=== PATIENT | male | born 1975 | race Caucasian/White ===

== ENCOUNTER → 2023-04-13 14:49 | Outpatient (REF) | payer BC, SELFPAY ==
--- NOTE | 2023-04-13 14:55 | CA_ITS ---
Transthoracic Echocardiogram Patient (Last, First, Middle): Marcio Pearce, Gender: Male Date of : 1975 Age: 47 Procedure Date: 04/13/2023 Procedure Type: Transthoracic Echocardiogram Location: OP Height: 185.42 cm Weight: 108.86 kg BSA: 2.33 m2 Heart Rate: bpm BP: 128 / 70 mmHg [employer] Teacher: TO Referring MD: Radha Rodriguez PA-C Symptoms: R42 DIZZINESS GIDDINESS Study Quality: Adequate ECG Rhythm: Sinus Conclusions: - The left ventricular systolic function is normal. The calculated ejection fraction is 65% by biplane method. - No obvious valvular pathology seen on this study. Findings Left Ventricle Normal left ventricular cavity size. There is mildly increased left ventricular wall thickness. The left ventricular systolic function is normal. The calculated ejection fraction is 65% by biplane method. There is no evidence of regional wall motion abnormalities. Diastolic function is normal for age. Right Ventricle Normal right ventricular cavity size and systolic function. Atria Both atria are normal in size. Aortic Valve There is a normal trileaflet aortic valve. There is no aortic valve stenosis. There is no aortic valve regurgitation. Mitral Valve The mitral valve appears normal. There is no mitral valve regurgitation. There is no mitral valve stenosis. Pulmonic Valve The pulmonic valve is likely normal. Tricuspid Valve Normal tricuspid valve structure. There is trace tricuspid valve regurgitation. There is no evidence of pulmonary hypertension. Great Vessels The asc aorta is normal in size. Venous The inferior vena cava is normal in size and collapses greater than 50% with inspiration. Pericardium/Pleural There is no evidence of pericardial effusion. Prior Study Comparison No prior study available for comparison. Recommendations, Care & Conclusions No obvious valvular pathology seen on this study. Measurements 2D Linear Measurements IVSd: 1.07 0.6-0.9/0.6-1.0 cm LVIDd: 4.54 3.9-5.3/4.2-5.9 cm LVIDd Index: 1.95 2.4-3.2/2.2-3.1 cm/m2 LVIDs: 2.64 2.0-3.6 cm LVPWd: 1.12 0.7-1.1 cm LA Diam: 3.40 2.7-3.8/3.0-4.0 cm LAIDs Index: 1.46 1.5-2.3 cm/m2 LV Mass: 219.69 67-162/88-224 g LV Mass Index: 94.29 43-95/49-115 g/m2 LVOT Diam: 2.20 3.0+(-)1.3 cm 2D Systolic Function EF 4C: 62.80 >55% EF 2C: 69.30 >55% EF BiP: 65.40 >55% Mitral Valve MV Pk E: 0.64 MV PK A: 0.51 MV Decel Time: 173.00 E/A: 1.30 E'Lateral: 7.40 E'Medial: 6.74 E/E' Med: 9.50 E/E' Lat: 8.70 PHT: 51.00 MVA PHT: 4.31 Decel [place]: 3.72 Aortic Valve AoV Pk Esau: 1.51 AoV Mn Esau: 1.03 AoV VTI: 0.27 AoV Pk Grad: 9.00 Aov Mn Grad: 5.00 JULIAN Cont.VTI: 2.85 LVOT LVOT Pk Esau: 1.17 LVOT Mn Esau: 0.74 LVOT VTI: 0.20 LVOT Pk Grad: 5.00 LVOT Mn Grad: 3.00 LVOT Diam: 2.20 LVOT Area: 3.80 Diastolic Function MV Pk E: 0.64 MV Pk A: 0.51 E/A: 1.30 E'Medial: 6.74 E/E' Med: 9.50 E' Laterial: 7.40 E/E' Lat: 8.70 Right Ventricle TAPSE (mm): 24.40 TVS' Esau: 15.20 Tricuspid Valve RA Press: 3.00 Great Vessels Aorta Sinus of Valsalva: 3.62 2.0-3.5 cm Ao Asc: 3.20 2.1-3.4 cm Updated in Other Vendor System with Status of Final Donlad Srinivasan MD electronically signed on 04/14/2023 9:17:15 AM with status of Final
== END ==
LOC: HO.CARD 14:49
PROVIDERS: PCP Physician Assistant; Visit Provider Physician Assistant
DX: R42 Dizziness and giddiness (principal)
CPT/HCPCS: 93306

== ENCOUNTER → 2023-04-13 14:55 | Outpatient (BNV) | payer BC, SELFPAY | PROVIDERS: PCP Physician Assistant; Visit Provider Internal Medicine | DX: I34.81 Nonrheumatic mitral (valve) annulus calcification (principal) | CPT/HCPCS: 93306 ==